=== PATIENT | male | born 1970 | race Hispanic/Latino ===

== ENCOUNTER 2019-10-21 20:52 | Emergency (ER) | payer OTHER, SELFPAY ==
[2019-10-21] MEDS ORDERED: ONDANSETRON HCL 4 MG/2 ML VIAL ONE (21:29)
[2019-10-21] MEDS ORDERED: MORPHINE SULFATE 4 MG/1ML SYG ONE (21:30)
[2019-10-21 21:46] LABS: BASOPHILS % (AUTO) 0.4 % (0.0-5.0); EOSINOPHILS % (AUTO) 2.8 % (0.0-8.0); HEMATOCRIT 40.4 % (42-54); LYMPHOCYTES % (AUTO) 47.8 % (21.0-51.0); MEAN CORPUSCULAR HEMOGLOBIN 28.4 pg (27.0-33.0); MEAN CORPUSCULAR HGB CONC 32.7 g/dL (32.0-36.0); MEAN CORPUSCULAR VOLUME 87.1 fL (79-99); MONOCYTES % (AUTO) 17.1 % (3.0-13.0); NEUTROPHILS % (AUTO) 31.5 % (40.0-77.0); PLATELET COUNT (AUTO) 150 K/uL (130-400); RED BLOOD CELL COUNT(AUTO) 4.64 MIL/uL (4.50-6.20); RED CELL DISTRIBUTION WIDTH 12.6 % (11.0-15.5); WHITE BLOOD COUNT (AUTO) 5.4 K/uL (4.8-10.8)
[2019-10-21 21:59] LABS: CREATININE 1.3 mg/dL (0.5-1.5); POTASSIUM 3.6 mmol/L (3.5-5.1)
[2019-10-21 22:03] LABS: ALBUMIN 3.5 g/dL (3.5-5.0); BILIRUBIN,TOTAL 0.4 mg/dL (0.2-1.0); TOTAL PROTEIN, SERUM 6.8 g/dL (6.0-8.3)
[2019-10-21 22:29] LABS: APPEARANCE,URINE Clear (CLEAR); BILIRUBIN,URINE Negative (NEGATIVE); COLOR,URINE Dark Yellow (YELLOW); GLUCOSE, URINE (UA) Negative (NEGATIVE); KETONES,URINE Negative (NEGATIVE); LEUKOCYTE ESTERASE ,URINE Negative (NEGATIVE); NITRATE,URINE Negative (NEGATIVE); OCCULT BLOOD,URINE Negative (NEGATIVE); PROTEIN,URINE Negative (NEGATIVE)
== END 2019-10-21 23:16 | disposition home or self-care (01) ==
LOC: EDH 20:52
DX: R10.13 Epigastric pain (principal); Z98.890 Other specified postprocedural states; Z86.19 Personal history of other infectious and parasitic diseases
CPT/HCPCS: 36415; 74176; 76705; 80053; 81003; 82150; 83690; 84484; 85025; 93005; 96374; 96375; 99285; J2270; J2405

== ENCOUNTER 2020-10-21 03:48 | Emergency (ER) | payer OTHER, SELFPAY ==
[~2020-10-21] VITALS: Ht 175.3 cm; Wt 104.3 kg
[2020-10-21 03:53] VITALS: BP 141/92
[2020-10-21 04:34] VITALS: BP 141/92
[2020-10-21] MEDS ORDERED: ONDANSETRON 4MG INJ ONE (05:22)
[2020-10-21] MEDS ORDERED: PANTOPRAZOLE 40 MG/VIAL ONE (05:22)
[2020-10-21] MEDS ORDERED: SODIUM CHLORIDE 0.9% 1000ML 1,000 ML IV ONE ×2 (05:22→05:30)
[2020-10-21] MEDS ORDERED: FAMOTIDINE/PF 20 MG/2 ML VIAL IV ONE ×2 (05:23→05:30)
[2020-10-21] MEDS ORDERED: ONDANSETRON 4MG INJ IVP ONE (05:30)
[2020-10-21] MEDS ORDERED: PANTOPRAZOLE 40 MG/VIAL IVP SCH (05:30)
[2020-10-21 05:55] LABS: BASOPHILS % (AUTO) 0.3 % (0.0-5.0); EOSINOPHILS % (AUTO) 0.9 % (0.0-8.0); HEMATOCRIT 42.2 % (42-54); LYMPHOCYTES % (AUTO) 40.4 % (21.0-51.0); MEAN CORPUSCULAR HEMOGLOBIN 28.7 pg (27.0-33.0); MEAN CORPUSCULAR HGB CONC 31.5 g/dL (32.0-36.0); MEAN CORPUSCULAR VOLUME 91.1 fL (79-99); MONOCYTES % (AUTO) 11.5 % (3.0-13.0); NEUTROPHILS % (AUTO) 46.7 % (40.0-77.0); PLATELET COUNT (AUTO) 186 K/uL (130-400); RED BLOOD CELL COUNT(AUTO) 4.63 MIL/uL (4.50-6.20); RED CELL DISTRIBUTION WIDTH 13.2 % (11.0-15.5); WHITE BLOOD COUNT (AUTO) 6.6 K/uL (4.8-10.8)
[2020-10-21 06:11] LABS: ALBUMIN 3.7 g/dL (3.5-5.0); CREATININE 1.2 mg/dL (0.5-1.5); TOTAL PROTEIN, SERUM 7.4 g/dL (6.0-8.3)
[2020-10-21 06:18] LABS: BILIRUBIN,URINE Small (NEGATIVE); COLOR,URINE Dark Yellow (YELLOW); GLUCOSE, URINE (UA) Negative (NEGATIVE); KETONES,URINE Negative (NEGATIVE); LEUKOCYTE ESTERASE ,URINE Negative (NEGATIVE); NITRATE,URINE Negative (NEGATIVE); OCCULT BLOOD,URINE Negative (NEGATIVE); PH,URINE 5.5 (5.0-8.0); PROTEIN,URINE Negative (NEGATIVE)
[2020-10-21 06:21] LABS: APPEARANCE,URINE CLEAR (CLEAR)
[2020-10-21] MEDS ORDERED: DICY20TA2 PO (06:23)
[2020-10-21] MEDS ORDERED: ONDA4TAB10 PO (06:23)
[2020-10-21] MEDS ORDERED: PANT40TA54 PO (06:23)
[2020-10-21] MEDS ORDERED: METO-296 PO (06:23)
[2020-10-21 06:40] VITALS: BP 135/87
== END 2020-10-21 06:48 | disposition home or self-care (01) ==
LOC: EDH 03:48
DX: E86.0 Dehydration (principal); K29.70 Gastritis, unspecified, without bleeding; B19.20 Unspecified viral hepatitis C without hepatic coma; R11.2 Nausea with vomiting, unspecified
CPT/HCPCS: 36415; 80053; 81003; 83690; 84484; 85025; 96374; 96375; 99284; C9113; J2405; J3490; J7030